=== PATIENT | female | born 1975 | race Caucasian/White ===

== ENCOUNTER → 2018-01-14 | Outpatient (CLI) | payer BC ==
[~2018-01-14] MED LIST: CYMBALTA30 MG PO; DIATRIZOATE MEGL/DIATRIZOA SOD 30 ML BTL PO ONE; IOPAMIDOL 370 MG/ML 200 ML INFUS..BTL INJ ONE; SODIUM CHLORIDE 0.9% 50ML 50 ML ONE
[2018-01-14 13:34] LABS: BLOOD UREA NITROGEN 8 mg/dL (7-26); BUN/CREATININE RATIO 10 (6-25); CREATININE, SERUM 0.81 mg/dL (0.57-1.11); EST GLOMERULAR FILTRATION RATE > 60 ML/MIN (60-)
--- NOTE | 2018-01-14 15:39 | Diagnostic Imaging Report ---
EXAM: CT Abdomen and Pelvis WITH contrast INDICATION: \[id number] \S\[id number] \S\ACUTE ABD PAIN LT LQ/DIARRHEA/LEUKO COMPARISON: Pelvic ultrasound 08/03/2013 TECHNIQUE: Abdomen and pelvis were scanned utilizing a multidetector helical scanner from the lung base to the pubic symphysis after administration of IV contrast. Coronal and sagittal reformations were obtained. Routine protocol was performed. Scan was performed when during portal venous phase. IV CONTRAST: 100 mL of Isovue-370 ORAL CONTRAST: Gastrografin RADIATION DOSE: Total DLP: 781.6 mGy*cm Estimated effective dose: (DLP x 0.015 x size factor) mSv COMPLICATIONS: None FINDINGS: LINES and TUBES: None. LOWER THORAX: Unremarkable HEPATOBILIARY: Mild diffuse low-attenuation of the liver parenchyma is suggestive of early hepatic steatosis. No focal hepatic lesions. No biliary ductal dilation. GALLBLADDER: No radio-opaque stones or sludge. No wall thickening. SPLEEN: No splenomegaly. PANCREAS: No focal masses or ductal dilatation. ADRENALS: No adrenal nodules KIDNEYS/URETERS: Kidneys enhance symmetrically. No hydronephrosis. No cystic or solid mass lesions. No stones. GI TRACT: Diffuse wall thickening throughout the colon with a scattered diverticulosis. Within the sigmoid colon there is associated surrounding fat stranding consistent with acute diverticulitis (series 2, image 71). No abscess or surrounding fluid collections. The small bowel is unremarkable. Appendix is normal. PELVIC ORGANS/BLADDER: Unremarkable. LYMPH NODES: No lymphadenopathy. VESSELS: Unremarkable. Incidental 2 right renal veins. PERITONEUM / RETROPERITONEUM: No free air or fluid. BONES: Mild degenerative changes of the lower lumbar spine, worse at the L4-5 and L5-S1. SOFT TISSUES: Partially visualized bilateral breast implants. IMPRESSION: 1. Acute diverticulitis of the sigmoid colon. - No free air, fluid collection, or abscess. 2. Diffuse wall thickening throughout the colon is suggestive of a chronic inflammatory disease including Crohn's and ulcerative colitis. 3. Findings suggestive of mild hepatic steatosis. Findings communicated to YESENIA Snow on 01/14/2018 at 3:30 PM. Signed by: Dr. Belia Awan M.D. on 01/14/2018 3:36 PM
== END ==
LOC: CT 12:34
PROVIDERS: ATTEND Family Medicine
DX: R10.32 Left lower quadrant pain (principal); R19.7 Diarrhea, unspecified; D72.829 Elevated white blood cell count, unspecified
CPT/HCPCS: 36415; 74177; 81025; 82565; 84520; Q9967